=== PATIENT | male | born 1960 | race Caucasian/White ===

== ENCOUNTER 2018-11-15 17:02 | Emergency (ER) | payer OTHER ==
[2018-11-15] MEDS ORDERED: Diphtheria,Pertussis(Acell),Tetanus Vaccine 0.5 ML Syringe IM ONE (17:16)
--- NOTE | 2018-11-15 17:18 | EDM.PDOC ---
ED HPI GENERAL MEDICAL PROBLEM - General Chief Complaint: Laceration Stated Complaint: CUT ON LEFT HAND Time Seen by Provider: 11/15/18 17:18 Source of Information: Reports: Patient History Limitations: Reports: No Limitations - History of Present Illness INITIAL COMMENTS - FREE TEXT/NARRATIVE: HISTORY AND PHYSICAL: History of present illness: Patient is a 58-year-old female presents to the ED with a laceration. He states he was using a multifocal button grinder wheel and it broke cutting his left hand. He denies distal numbness or tingling. He is not UTD on tetanus . Review of systems: As per history of present illness and below otherwise all systems reviewed and negative. Past medical history: As per history of present illness and as reviewed below otherwise noncontributory. Surgical history: As per history of present illness and as reviewed below otherwise noncontributory. Social history: No reported history of drug or alcohol abuse. Family history: As per history of present illness and as reviewed below otherwise noncontributory. Physical exam: General: Patient sitting comfortably in no acute distress and nontoxic appearing HEENT: Atraumatic, normocephalic, pupils reactive, negative for conjunctival pallor or scleral icterus, mucous membranes moist, throat clear, neck supple, nontender, trachea midline. No meningeal signs. Lungs: Clear to auscultation, breath sounds equal bilaterally, chest nontender. Heart: S1S2, regular, negative for clicks, rubs, or overt murmur. Abdomen: Soft, nondistended, nontender. Negative for masses or hepatosplenomegaly. Negative for costovertebral tenderness. No rigidity, rebound , guarding. Pelvis: Stable nontender. Genitourinary: Deferred. Rectal: Deferred. Extremities: There is a 3cm laceration to the dorsal left hand between the 2nd and 3rd MCPs. negative for cords or calf pain. Neurovascular unremarkable. Neuro: Awake, alert, oriented. Cranial nerves II through XII unremarkable. Cerebellum unremarkable. Motor and sensory unremarkable throughout. Exam nonfocal. Notes: Diagnostics: x-ray left hand Therapeutics: tdap laceration repair Prescriptions: Impression: Laceration Plan: Keep the area clean and dry as instructed Follow up for suture removal in 7-10 days Return to ED as needed as discussed Definitive disposition and diagnosis as appropriate pending reevaluation and review of above. Left Hand Pain Score (Numeric/FACES): 2 - Related Data Allergies Allergy/AdvReac Type Severity Reaction Status Date / Time No Known Allergies Allergy Verified 11/15/18 17:13 Home Meds: Home Meds Lactobacillus Comb7/Fos/Inulin [Probiotic Complex Tablet] 1 mg PO DAILY [History] ED ROS GENERAL - Review of Systems Review Of Systems: ROS reveals no pertinent complaints other than HPI. ED EXAM, SKIN/RASH Exam: See Below (see dictation) ED SKIN PROCEDURES - Laceration/Wound Repair Left Posterior Hand Appearance: Subcutaneous, Linear, Clean Distal NVT: Neuro & Vascular Intact, No Tendon Injury Local Anesthesia - Lidocaine (Xylocaine): 1% Plain Local Anesthetic Volume: 5cc Skin Prep: Chlorhexidine (Hibiciens), Isopropyl Alcohol (Alcohol) Saline Irrigation (cc's): 250 Exploration/Debridement/Repair: Wound Explored, In a Bloodless Field, Explored to Base Closed with: Sutures Lac/Wound length In cm: 3 (cm) Suture Size: 4-0 # of Sutures: 8 Suture Type: Nylon, Interrupted, Simple Course - Vital Signs Last Recorded V/S: Last Vital Signs Temp 97.1 F 11/15/18 19:10 Pulse 86 11/15/18 19:10 Resp 16 11/15/18 19:10 BP 178/97 H 11/15/18 19:10 Pulse Ox 92 L 11/15/18 19:10 - Orders/Labs/Meds Orders: Active Orders 24 hr Category Date Time Status Vaccines to be Administered [RC] PER UNIT ROUTINE Care 11/15/18 17:16 Active Meds: Medications Discontinued Medications Generic Name Dose Route Start Last Admin Trade Name Jose Raul PRN Reason Stop Dose Admin Diphtheria/Tetanus/Acell Pertussis 0.5 ml 11/15/18 17:16 11/15/18 17:40 Adacel IM 11/15/18 17:17 0.5 ml .ONCE ONE Administration Lidocaine HCl 10 ml 11/15/18 17:48 11/15/18 18:20 Xylocaine 1% INJECT 11/15/18 17:49 Not Given ONETIME ONE Lidocaine HCl 10 ml 11/15/18 18:19 11/15/18 18:22 Xylocaine-Mpf 1% INJECT 11/15/18 18:20 10 ml ONETIME ONE Administration Lidocaine HCl Confirm 11/15/18 18:19 11/15/18 18:22 Xylocaine-Mpf 1% Administered 11/15/18 18:20 Not Given Dose 10 ml .ROUTE .STK-MED ONE Departure - Departure Time of Disposition: 19:01 Disposition: Home, Self-Care 01 Condition: Good Clinical Impression: Laceration - Discharge Information Instructions: Laceration Care, Adult, [id number] Referrals: PCP,None [Primary Care Provider] - Forms: ED Department Discharge Additional Instructions: The following information is given to patients seen in the emergency department who are being discharged to home. This information is to outline your options for follow-up care. We provide all patients seen in our emergency department with a follow-up referral. The need for follow-up, as well as the timing and circumstances, are variable depending upon the specifics of your emergency department visit. If you don't have a primary care physician on staff, we will provide you with a referral. We always advise you to contact your personal physician following an emergency department visit to inform them of the circumstance of the visit and for follow-up with them and/or the need for any referrals to a consulting specialist. The emergency department will also refer you to a specialist when appropriate. This referral assures that you have the opportunity for follow-up care with a specialist. All of these measure are taken in an effort to provide you with optimal care, which includes your follow-up. Under all circumstances we always encourage you to contact your private physician who remains a resource for coordinating your care. When calling for follow-up care, please make the office aware that this follow-up is from your recent emergency room visit. If for any reason you are refused follow-up, please contact the [facility] Emergency Department at and asked to speak to the emergency department charge nurse. [facility] [address] [place] [address] [id number] [address] [address] Keep the area clean and dry as instructed Follow up for suture removal in 7-10 days Return to ED as needed as discussed - My Orders Last 24 Hours: My Active Orders 11/15/18 17:16 Vaccines to be Administered [RC] PER UNIT ROUTINE - Assessment/Plan Last 24 Hours: My Active Orders 11/15/18 17:16 Vaccines to be Administered [RC] PER UNIT ROUTINE
[2018-11-15] MEDS ORDERED: Lidocaine 1% 10 ML MDV INJECT ONE (17:48)
--- NOTE | 2018-11-15 18:23 | CR ---
Indication: Injury. Possible foreign body. Technique: Left hand three views. Comparison: None Findings: No acute fracture or dislocation. There are mild degenerative changes of the 1st carpometacarpal joint. No additional osseous abnormality. Rounded calcific density projecting just distal and radial to the ulnar styloid. Soft tissues as imaged are otherwise unremarkable. Impression: No acute osseous abnormality. Rounded density just radial to the ulnar styloid is thought to represent an unfused secondary ossification center or sequela of prior trauma. No definite radiopaque foreign body. Dictated by Gary Treivno MD @ 11/15/2018 6:21:47 PM Dictated by: Gary Trevino MD @ 11/15/2018 18:21:57 (Electronically Signed)
[2018-11-15 19:15] VITALS: BP 178/97; PULSE 86
== END 2018-11-15 19:10 | disposition home or self-care (01) ==
LOC: MW.ED 17:02
DX: S61.412A Laceration without foreign body of left hand, initial encounter (principal); Z23 Encounter for immunization; Z79.899 Other long term (current) drug therapy; W31.9XXA Contact with unspecified machinery, initial encounter
CPT/HCPCS: 12002; 73130; 90471; 90715; 99283; J2001